=== PATIENT | female | born 1965 | race Caucasian/White ===

== ENCOUNTER → 2019-01-08 | Outpatient (CLI) | payer OTHER ==
[~2019-01-08] MED LIST: AMLO1TAB15 PO; ASPI-496 PO; CARV3.122 PO; CLOP75TA52 PO; DOCU-131 PO; FLUT250D IH; FURO-93 PO; HYDR-3307 PO; LORA-247 PO; NIAC1TBM5 PO; NITR0.4T28 SL; POTA10TA6 PO; symbicort IH
== END | disposition home or self-care (01) ==
LOC: CFH 13:52
PROVIDERS: ATTEND Family Medicine
DX: Z12.31 Encounter for screening mammogram for malignant neoplasm of breast (principal)
CPT/HCPCS: 77067